=== PATIENT | male | born 1985 | race African-American/Black ===

== ENCOUNTER 2022-10-20 16:56 | Emergency (ER) | payer SELFPAY ==
[2022-10-20] MEDS ORDERED: Diphtheria,Pertussis(Acell),Tetanus Vaccine 0.5 ML Syringe IM ONE (17:00)
[2022-10-20 17:16] LABS: BASOPHILS PERCENT AUTO 0.3 % (0.0-1.5); EOSINOPHILS ABSOLUTE AUTO 0.2 K/uL (0.0-0.7); EOSINOPHILS PERCENT AUTO 1.2 % (0.0-7.0); HEMATOCRIT 44.9 % (38.0-50.0); HEMOGLOBIN 16.4 g/dL (13.0-17.0); LYMPHOCYTES ABSOLUTE AUTO 2.9 K/uL (0.6-2.4); LYMPHOCYTES PERCENT AUTO 22.5 % (16.0-40.0); MEAN CORPUSCULAR HGB CONC 36.5 g/dL (31.0-37.0); MEAN CORPUSCULAR VOLUME 82.2 fL (80.0-98.0); MONOCYTES ABSOLUTE AUTO 0.8 K/uL (0.0-0.8); MONOCYTES PERCENT AUTO 6.5 % (0.0-15.0); NEUTROPHILS ABSOLUTE AUTO 8.9 K/uL (1.4-5.7); NEUTROPHILS PERCENT AUTO 69.5 % (48.0-80.0); NRBC ABSOLUTE 0 K/uL; PLATELET COUNT,PLT 229 K/uL (150-400); RED BLOOD CELL COUNT 5.46 M/uL (4.50-5.90); WHITE BLOOD CELL COUNT,WBC 12.83 K/uL (4.0-11.0)
[2022-10-20 17:22] LABS: INR 0.98 (0.86-1.11)
[2022-10-20 17:36] LABS: A/G RATIO 0.9 (0.9-1.6); CALCIUM 9.9 mg/dL (8.5-10.1); CARBON DIOXIDE,CO2 27.5 mmol/L (21.0-32.0); EST CRCL DRUG DOSING (CG) 108.86 mL/min; POTASSIUM,K 3.7 mmol/L (3.5-5.1); PROTEIN TOTAL,TP 8.3 g/dL (6.4-8.2)
[2022-10-20] MEDS ORDERED: Lidocaine/Epineph/Tetracaine 3 ML Syringe TOP ONE (17:47)
[2022-10-20] MEDS ORDERED: Ibuprofen 400 MG Tab PO ONE (17:47)
[2022-10-20] MEDS ORDERED: Acetaminophen 325 MG Tab PO ONE (17:47)
== END 2022-10-20 18:52 | disposition home or self-care (01) ==
LOC: MW.ED 16:56
DX: S51.012A Laceration without foreign body of left elbow, initial encounter (principal); M25.512 Pain in left shoulder; Z23 Encounter for immunization; V58.5XXA Driver of pick-up truck or van injured in noncollision transport accident in traffic accident, initial encounter; Y92.89 Other specified places as the place of occurrence of the external cause; Y99.0 Civilian activity done for income or pay
CPT/HCPCS: 12001; 36415; 70450; 71045; 72125; 72170; 73030; 73080; 80053; 85025; 85610; 90471; 90715; 99284; A9270; 99283

== ENCOUNTER 2022-10-21 10:29 | Emergency (ER) | payer SELFPAY ==
[2022-10-21] MEDS ORDERED: Lidocaine 4% 1 each Patch TOP PRN (11:19)
[2022-10-21] MEDS ORDERED: Ibuprofen 400 MG Tab PO ONE (11:19)
[2022-10-21] MEDS ORDERED: Acetaminophen 325 MG Tab PO ONE (11:19)
== END 2022-10-21 12:28 | disposition home or self-care (01) ==
LOC: MW.ED 10:29
DX: M25.522 Pain in left elbow (principal)
CPT/HCPCS: 99282; A9270; 99283

== ENCOUNTER 2022-10-24 19:41 | Emergency (ER) | payer OTHER ==
[2022-10-24] MEDS ORDERED: Diazepam 2 MG Tab PO ONE (20:29)
[2022-10-24] MEDS ORDERED: Ketorolac 30 MG/ML SDV IM ONE (20:29)
[2022-10-24] MEDS ORDERED: Acetaminophen/HYDROcodone 325-10 MG Tab PO ONE (20:29)
[2022-10-24] MEDS ORDERED: predniSONE 20 MG Tab PO ONE (20:29)
== END 2022-10-24 21:42 | disposition home or self-care (01) ==
LOC: MW.ED 19:41
DX: S43.102A Unspecified dislocation of left acromioclavicular joint, initial encounter (principal); S13.4XXA Sprain of ligaments of cervical spine, initial encounter; S50.02XA Contusion of left elbow, initial encounter; S20.219A Contusion of unspecified front wall of thorax, initial encounter; M54.12 Radiculopathy, cervical region; V69.9XXA Occupant (driver) (passenger) of heavy transport vehicle injured in unspecified traffic accident, initial encounter; Y92.410 Unspecified street and highway as the place of occurrence of the external cause
CPT/HCPCS: 73080; 96372; 99283; A9270; J1885

== ENCOUNTER 2022-12-05 11:35 | Day surgery (SDC) | payer OTHER ==
[~2022-12-05 11:35] MED LIST: Albuterol 0.083% 2.5 MG/3 ML Neb Soln NEB PRN; HYDROmorphone 1 MG/ML Syringe IVPUSH PRN; Metoclopramide 10 MG/2 ML SDV IVPUSH PRN; Morphine 2 MG/ML SYRINGE IVPUSH PRN; Naloxone 0.4 MG/ML SDV IVPUSH PRN; Ondansetron 4 MG/2 ML SDV IVPUSH PRN; ceFAZolin 2 GM in Sodium Chloride 0.9% 50 ML IV ONE; droPERidol 5 MG/2 ML SDV IVPUSH PRN; fentaNYL 50 MCG/ML SDV IVPUSH PRN
[2022-12-05] MEDS ORDERED: Bupivacaine 25%/EPINEPHrine/PF 30 ML ONE (11:50)
[2022-12-05] MEDS: Lactated Ringers 1,000 ML IV SCH (12:06)
[2022-12-05] MEDS ORDERED: Bupivacaine 0.5% 10 ML SDV ONE (13:10)
[2022-12-05] MEDS ORDERED: Propofol 200 MG/20 ML SDV ONE (13:12)
[2022-12-05] MEDS ORDERED: Midazolam 1 MG/ML 2 ML SDV ONE (13:16)
== END 2022-12-05 14:25 | disposition home or self-care (01) ==
LOC: MW.SDS 11:35
PROVIDERS: ATTEND Orthopaedic Surgery
DX: M70.22 Olecranon bursitis, left elbow (principal); K21.9 Gastro-esophageal reflux disease without esophagitis; M25.511 Pain in right shoulder; M25.512 Pain in left shoulder; F17.210 Nicotine dependence, cigarettes, uncomplicated; Z88.0 Allergy status to penicillin
CPT/HCPCS: 24105; J2250; J2704; J3490; J7120; 01710

== ENCOUNTER 2023-11-18 21:54 | Emergency (ER) | payer SELFPAY ==
[2023-11-18] MEDS: Ibuprofen 800 MG Tab PO ONE (23:33)
[2023-11-18] MEDS: Acetaminophen 500 MG Tab PO ONE (23:33)
== END 2023-11-18 23:53 | disposition home or self-care (01) ==
LOC: MW.ED 21:54
DX: R22.0 Localized swelling, mass and lump, head (principal); F17.210 Nicotine dependence, cigarettes, uncomplicated; Z88.0 Allergy status to penicillin; Z79.899 Other long term (current) drug therapy
CPT/HCPCS: 99283; A9270

== ENCOUNTER 2023-11-21 09:09 | Emergency (ER) | payer SELFPAY ==
[2023-11-21] MEDS: Ondansetron 4 MG/2 ML SDV IVPUSH ONE (09:38)
[2023-11-21] MEDS: Ketorolac 30 MG/ML SDV IVPUSH ONE (09:38)
[2023-11-21] MEDS: Sodium Chloride 0.9% 1,000 ML IV ONE (09:38)
[2023-11-21] MEDS: Morphine 2 MG/ML SYRINGE IVPUSH ONE (09:39)
[2023-11-21] MEDS: Sodium Chloride 0.9% 2.5 ML Syringe FLUSH PRN (09:39)
[2023-11-21] MEDS: Sodium Chloride 0.9% 10 ML Syringe FLUSH PRN (09:39)
[2023-11-21 09:55] LABS: BASOPHILS ABSOLUTE AUTO 0.03 K/uL (0.00-0.20); BASOPHILS PERCENT AUTO 0.2 % (0.0-1.0); EOSINOPHILS ABSOLUTE AUTO 0.07 K/uL (0.00-0.45); EOSINOPHILS PERCENT AUTO 0.5 % (0.0-6.0); HEMATOCRIT 43.2 % (42.0-52.0); HEMOGLOBIN 15.1 g/dL (14.0-18.0); IMMATURE GRAN ABSOLUTE AUTO 0.05 K/uL (0.00-0.05); IMMATURE GRAN PERCENT AUTO 0.4 % (0.0-0.4); LYMPHOCYTES ABSOLUTE AUTO 1.87 K/uL (1.00-4.80); MEAN CORPUSCULAR HEMOGLOBIN 28.9 pg (28.0-32.0); MEAN CORPUSCULAR VOLUME 82.6 fL (83.0-99.0); MEAN PLATELET VOLUME 9.8 fL (9.4-12.4); MONOCYTES ABSOLUTE AUTO 0.71 K/uL (0.00-0.80); MONOCYTES PERCENT AUTO 5.3 % (0.0-8.0); NEUTROPHILS ABSOLUTE AUTO 10.63 K/uL (1.80-7.70); NEUTROPHILS PERCENT AUTO 79.6 % (41.0-71.0); PLATELET COUNT,PLT 247 K/uL (150-400); RED BLOOD CELL COUNT 5.23 M/uL (4.52-5.90); WHITE BLOOD CELL COUNT,WBC 13.36 K/uL (3.9-11.3)
[2023-11-21 10:18] LABS: CALCIUM 8.6 mg/dL (8.5-10.1); CARBON DIOXIDE,CO2 20.1 mmol/L (21.0-32.0); CREATININE 0.9 mg/dL (0.8-1.3); EST CRCL DRUG DOSING (CG) 123.3 mL/min; POTASSIUM,K 3.8 mmol/L (3.5-5.1)
[2023-11-21] MEDS: Iopamidol 755 MG/ML 500 ML Multipack Bottle IVPUSH STA (10:51)
[2023-11-21] MEDS: Lidocaine 1% with EPINEPHrine 1:200,000 30 ML SDV INJECT ONE (11:32)
== END 2023-11-21 12:17 | disposition home or self-care (01) ==
LOC: MW.ED 09:09
DX: L02.01 Cutaneous abscess of face (principal); L03.211 Cellulitis of face; Z88.0 Allergy status to penicillin; Z79.899 Other long term (current) drug therapy
CPT/HCPCS: 10060; 36415; 70491; 80048; 85025; 96374; 96375; 99284; J1885; J2270; J2405; J3490; J7030; Q9967